=== PATIENT | female | born 1975 | race Caucasian/White ===

== ENCOUNTER 2020-12-06 15:07 | Outpatient (CLI) | payer SELFPAY ==
--- NOTE | ~2020-12-06 | MM_ITS ---
EXAMINATION: MM screening nuno BI w juana HISTORY: Screening TECHNIQUE: Craniocaudal and mediolateral oblique 3-D tomosynthesis images were obtained and synthetic 2-D images were generated. CAD analysis was submitted and interpreted. COMPARISON: Comparison to multiple prior studies sequentially, with oldest reviewed study dated 06/09. BREAST PARENCHYMAL COMPOSITION: The breasts are heterogeneously dense, which may obscure small masses . FINDINGS: There is a developing mass in the lower central right breast, middle third. There are additional bila teral breast masses which are stable or diminished in size compared with prior examination, previousl y demonstrated to be benign cysts. No there are surgical changes in both breasts. No suspicious calci fications or architectural distortion. IMPRESSION: 1. Developing right breast mass. 2. Additional mammographic views and possible breast ultrasound are recommended. BI-RADS Category 0: Incomplete: Needs additional imaging evaluation. Reviewed, dictated and finalized at location A. IMPRESSION: 1. Developing right breast mass. 2. Additional mammographic views and possible breast ultrasound are recommended . BI-RADS Category 0: Incomplete: Needs additional imaging evaluation.
== END 2020-12-06 15:08 | disposition home or self-care (01) ==
LOC: ANHIMG 15:16
PROVIDERS: PCP Obstetrics & Gynecology; Visit Provider Obstetrics & Gynecology
DX: Z12.31 Encounter for screening mammogram for malignant neoplasm of breast (principal); R92.8 Other abnormal and inconclusive findings on diagnostic imaging of breast
CPT/HCPCS: 77063; 77067

== ENCOUNTER 2020-12-29 11:26 | Outpatient (CLI) | payer SELFPAY ==
--- NOTE | ~2020-12-29 | MMUS_ITS ---
EXAMINATION: MM diagnostic mammo unilat RT, US breast RT complete HISTORY: Developing right breast mass reported on 12/06/2020 screening mammogram TECHNIQUE: Additional 3-D tomosynthesis images of the right breast were performed and synthetic 2-D i mages were generated. CAD analysis was submitted and interpreted. High resolution complete right tammie st ultrasound was performed. COMPARISON: 12/06/2020 bilateral digital screening mammogram 11/11/2018 bilateral digital screening mammogram 11/18/2017 bilateral diagnostic mammogram 08/30/2016 bilateral complete breast ultrasound examination BREAST PARENCHYMAL COMPOSITION: The breasts are heterogeneously dense, which may obscure small masses . FINDINGS: MAMMOGRAPHIC FINDINGS: An approximately 2.2 cm circumscribed low-density mass with halo sign is noted in the central right b reast, likely a benign cyst. Additional smaller masses are suggested. Surgical clips in the posterior upper inner quadrant of right breast. ULTRASOUND: There are numerous cysts, the largest measuring 1.9 x 0.8 x 2.8 cm, corresponding to the mammographic mass with halo sign, located at 1:00 near the nipple. No suspicious mass or shadowing is evident. IMPRESSION: 1. Benign cysts; no mammographic evidence of malignancy 2. Routine annual mammographic screening is recommended. BI-RADS Category 2: Benign finding(s). Reviewed, dictated and finalized at location A. IMPRESSION: 1. Benign cysts; no mammographic evidence of malignancy 2. Routine annual mammographic screening is recommended. BI-RADS Category 2: Benign finding(s).
== END 2020-12-29 11:27 | disposition home or self-care (01) ==
LOC: ANHIMG 11:33
PROVIDERS: PCP Obstetrics & Gynecology; Visit Provider Obstetrics & Gynecology
DX: R92.8 Other abnormal and inconclusive findings on diagnostic imaging of breast (principal)
CPT/HCPCS: 76641; 77065

== ENCOUNTER 2024-01-16 09:56 | Outpatient (CLI) | payer BC, SELFPAY ==
--- NOTE | ~2024-01-16 | MMUS_ITS ---
EXAMINATION: MM diagnostic nuno BI w juana, US breast BI complete HISTORY: Right breast pain TECHNIQUE: ML, MLO and CC 3-D tomosynthesis images of both breasts were performed and synthetic 2-D i mages were generated. CAD analysis was submitted and interpreted. High resolution complete bilateral breast ultrasound examination including all 4 quadrants and subareolar area of each breast was perfor med. COMPARISON: 12/16/2022, 12/13/2021 lateral screening mammogram examinations BREAST PARENCHYMAL COMPOSITION: The breasts are heterogeneously dense, which may obscure small masses . FINDINGS: MAMMOGRAPHIC FINDINGS: History of right lumpectomy in 2017. History of bilateral benign breast biopsies. Surgical clips note d posteriorly in the upper inner right breast. Biopsy marker is needed in the inner mid left breast. Circumscribed opacities measuring up to 15.5 mm are noted on the right. Circumscribed up to 13 mm masses are noted on the left. No suspicious mass, architectural distortion, malignant calcification, skin thickening or retraction of either breast is detected. ULTRASOUND: No suspicious mass or shadowing renal breasts is evident. Right breast: 12:00 near nipple: 11 x 16 mm simple cyst 5:00 near nipple: 6 x 8 mm simple cyst 7:00 1 cm from nipple: Circumscribed hypoechoic lesion with through transmission posterior enhancemen t, measuring 3.4 x 3.7 mm, benign in appearance, without internal vascularity 8:00 2 cm from nipple: 10 x 15.8 mm simple cyst Left breast: Multiple circumscribed sonolucent and hypoechoic lesions with through transmission are noted at 11:00 -11:00, measuring up to 1 cm dimension. 3:00 4 cm from nipple: 8.8 x 15 mm cyst 6:00 near nipple: Up to 6.4 x 12.2 mm septated cysts 10:00 4 cm from nipple: 10 x 11 mm simple cyst IMPRESSION: 1. Benign findings 2. Routine annual mammographic screening is recommended BI-RADS Category 2: Benign finding(s). Reviewed, dictated and finalized at location A. IMPRESSION: 1. Benign findings 2. Routine annual mammographic screening is recommended BI-RADS Category 2: Benign finding(s).
== END 2024-01-16 09:57 | disposition home or self-care (01) ==
LOC: ANHIMG 09:59
PROVIDERS: PCP Nurse Practitioner Family; Visit Provider Obstetrics & Gynecology
DX: N60.01 Solitary cyst of right breast (principal)
CPT/HCPCS: 76641; 77062; 77066; G0279

== ENCOUNTER 2025-01-12 09:57 | Outpatient (CLI) | payer OTHER, SELFPAY ==
--- NOTE | ~2025-01-12 | MM_ITS ---
EXAMINATION: MM screening nuno BI w juana HISTORY: Screening TECHNIQUE: Craniocaudal and mediolateral oblique 3-D tomosynthesis images were obtained and synthetic 2-D images were generated. CAD analysis was submitted and interpreted. COMPARISON: Comparison to multiple prior studies sequentially, with oldest reviewed study dated 11/11. BREAST PARENCHYMAL COMPOSITION: Not dense: There are scattered areas of fibroglandular density. FINDINGS: There is a mass in the mid lateral aspect of the right breast, middle third unchanged from prior study, previously characterized as a cyst by ultrasound. There are no new masses, calcification s or architectural distortion in either breast to suggest malignancy. IMPRESSION: 1. No mammographic evidence of malignancy. 2. Recommend routine screening mammography in one year. BI-RADS Category 2: Benign finding(s). Reviewed, dictated and finalized at location A.
--- OUTSIDE RECORDS SUMMARY | 2025-01-12 11:23 | XMS_ITS | Clinical Summary ---
Author Organization [facility] Address [address] [place] [address] Care Team Providers Care Jewel Sorter Name Role Phone Sarah Barahona FAMILY AND DIVORCE LEGAL ASSISTANT Primary Care Provider [phone] Allergies Active Allergy Reactions Criticality Noted Date Comments Prochlorperazine Anaphylaxis High 06/20/2019 Phenazopyridine Other (see comment) 07/04/2015 BP DROPPED Sulfa Antibiotics Headache Low 07/04/2015 Medications vitamin D3, cholecalciferol, 5000 UNITS capsule Take 1 capsule (125 mcg total) by mouth daily. Active Evening Phoenix Oil 1000 MG Cap Take 1 capsule by mouth 2 (two) times daily. Active famotidine (PEPCID) 40 MG tabletIndication s:Reactive gastropathy Take 1 tablet (40 mg total) by mouth every evening. 90 tablet 01/13/2024 Active Active Problems Problem Noted Date Diagnosed Date GERD (gastroesophageal reflux disease) Hyperlipidemia LDL goal <100 09/30/2023 History of pleurisy 08/31/2021 Resolved Problems Problem Noted Date Diagnosed Date Resolved Date Screening for colon cancer 10/02/2023 0 10/06/2023 Screening for colon cancer 10/02/2023 0 10/27/2023 Screening for colon cancer 10/02/2023 0 11/17/2023 Screening for colon cancer 10/02/2023 0 12/01/2023 Benign cyst of left breast 09/10/2019 0 09/30/2023 Left breast mass 06/26/2015 09/30/2023 Overview (09/01/2019): Overview: On imaging. Plan core Encounters Date Type Department Care Team Description 12/22/2024 Orders Only [facility] [id number] [place] [address] Beau Do, CHARGE PREPARATION TECHNICIAN from Last 3 Months Immunizations Immunization Administration Dates Next Due Hepatitis A (Generic) 04/01/2008 Influenza (Generic) 07/07/2018 Tdap (Generic) 07/07/2018 Family History Medical History Relation Comments Diabetes Father Breast Cancer Maternal Aunt Diabetes Maternal Grandfather CHF Maternal Grandmother Breast Cancer Paternal Grandmother Relation Status Comments Father Maternal Aunt Alive Maternal Grandfather Maternal Grandmother Mother Paternal Grandmother Social History Tobacco Use Types Packs/Day Years Used Date Smoking Tobacco: Former Cigarettes Q uit: 09/22/2016 Smokeless Tobacco: Never Tobacco Cessation:Counseling Given: Yes Alcohol Use Standard Drinks/Week Comments Yes 0 (1 standard drink = 0.6 oz pur e alcohol) rarely PHQ-2 Answer Date Recorded Patient Health Questionnaire-2 Score 0 01/13/2024 Comments No Sex and Gender Information Value Date Recorded Sex Assigned at Not on file Legal Sex Female 8:26 PM CDT Gender Identity Not on file Sexual Orientation Not on file Last Filed Vital Signs Vital Sign Reading Time Taken Comments Blood Pressure 118/70 01/13/2024 4:42 PM CDT Pulse 72 01/13/2024 3:51 PM CDT Temperature 36.1 C (97 F) 01/13/2024 3:51 PM CDT Respiratory Rate 16 01/13/2024 3:51 PM CDT Oxygen Saturation 98% 01/13/2024 3:51 PM CDT Inhaled Oxygen Concentration - - Weight 85.7 kg (189 lb) 01/13/2024 3:51 PM CDT Height 158.8 cm (5' 2.5 ) 01/13/2024 3:51 PM CDT Body Mass Index 34.02 01/13/2024 3:51 PM CDT Plan of Treatment Health Maintenance Due Date Last Done Comments Cervical Cancer Screening Pap Smear (Age 30 to 64) Every 3 Years 1976 Annual Physical 01/09/1979 Hepatitis C 01/09/1994 Hepatitis B Vaccines (1 of 3 - 19+ 3-dose series) 01/09/1995 Cervical Cancer Screening Pap with HPV Testing (Age 30 to 64) Every 5 Years 07/18/2022 07/18/2017 Cervical Cancer Screening with HPV 07/18/2022 COVID-19 Vaccine ( - 2023- season) 2024 PHQ-2 (Physician [place]') 09/22/2024 01/13/2024 Mammogram Screening 01/15/2026 01/16/2024, 12/16/2022, 12/13/2021, Additional history exists DTaP, Tdap and Td Vaccines (2 - Td or Tdap) 07/07/2028 07/07/2018 Colorectal Cancer Screening Colonoscopy (10 Years) 12/01/2033 12/02/2023, 12/02/2023, 12/02/2023 Meningococcal B Vaccine Aged Out No l onger eligible based on patient's age to complete this topic Meningococcal Vaccine Aged Out No paul sunil eligible based on patient's age to complete this topic Pneumococcal Vaccine: Pediatrics (0 to 5 Years) and At-Risk Patients (6 to 49 Years) Aged Out No longer eligible based on patient's age to complete this topic RSV Immunizations Under 20 Months Aged Out No longer eligible based on patient's age to complete this topic Procedures Procedure Name Priority Date/Time Associated Diagnosis Comments MAMMOGRAM GENERIC (SCAN ORDER) 01/16/2024 COLONOSCOPY Routine 12/02/2023 9:13 AM CDT HPV MRNA E6/E7 Routine 07/18/2017 6:55 PM CDT from Last 3 Months or Most Recently Relevant to Health Maintenance Results * MAMMOGRAM GENERIC (SCAN ORDER) (01/16/2024) Anatomical Region Laterality Modality Other 01/16/2024 [facility] Scanned SCANNING Final Resu lt * COLONOSCOPY/EGD GENERIC (SCAN ORDER) (12/02/2023) 12/02/2023 [facility] Scanned SCANNING Final Resu lt * HPV MRNA E6/E7 (07/18/2017 6:55 PM CDT) HPV MRNA E6/E7 Not Detected NOT DETECTED 07/24/2017 11:37 AM CDT [facility] JUDIT BARNETT Comment: This test was performed using the APTIMA(R) HPV Assay([employer]This assay detects E6/E7 viral messenger RNA (mRNA)from 14 high-risk HPV types (16,18,31,33,35,39,45,51,52,56,58,59,66,68).For additional information please refer to:http://education.Omada/faq/SSP267b3(This link is being provided for informational/educational purposes only.)Test Performed by [facility],[employer] [facility],[address] [place] [id number] Sanabria M.D., Ph.D., Director of [phone], [facility] [id number] FLUID SPECIMEN / Unknown 07/18/2017 6:55 PM CDT 07/18/2017 6:55 PM CDT us Generic Conversion Md JUNG PATHOLOGY/CYTOLOGY ALIX CARNEY Final Result [facility] [address] [address], from Last 3 Months or Most Recently Relevant to Health Maintenance Insurance Care Teams Jewel Sorter Relationship Specialty Start Date End Date Sarah Barahona FNP [address] [place] [address] [place] [address] PCP - General Nurse Practitioner Family 09/30/23
--- OUTSIDE RECORDS SUMMARY | 2025-01-12 11:23 | XMS_ITS | Clinical Summary ---
Author Organization [facility] Address [address] [place] [address] Phone Care Team Providers Care Boiler Repairman Name Role Phone Zainab Mooney MD Primary Care Provider Allergies Active Allergy Reactions Criticality Noted Date Comments Phenazopyridine Other (See Comments) 07/04/2015 BP DROPPED Prochlorperazine Other (See Comments) 07/04/2015 BP AND OXYGEN LEVELS DROPPED Sulfa (Sulfonamide Antibiotics) Headache Low 07/04/2015 Medications multivitamin (DAILY-TRUDY) tablet Take 1 Tablet by mouth daily. Active Potassium 99 mg Tablet Take by mouth. Active cyanocobalamin (VITAMIN B-12) 100 mcg tablet Take 100 mcg by mouth daily. Active Evening Bronx Oil (EVENING PRIMROSE) 500 mg Capsule Take by mouth. Active Active Problems Patient Care Coordination No te Formatting of this note migh t be different from the original. Primary Care: No primary care provider on file. Referring Provider: Not in an encounter context. Other: Problem Noted Date Diagnosed Date Bilateral breast lump 06/26/2015 Overview (07/04/2015): On imaging. Plan core Family History Medical History Relation Name Comments Breast Cancer Paternal Grandmother GREAT Relation Name Status Comments Paternal Grandmother Social History Tobacco Use Types Packs/Day Years Used Date Smoking Tobacco: Former Alcohol Use Standard Drinks/Week Comments Yes 0 (1 standard drink = 0.6 oz pur e alcohol) Comments No Sex and Gender Information Value Date Recorded Sex Assigned at Not on file Legal Sex Female 2:50 PM CDT Gender Identity Not on file Sexual Orientation Not on file Last Filed Vital Signs Vital Sign Reading Time Taken Comments Blood Pressure 102/58 12/23/2018 1:42 PM CDT Pulse 79 12/23/2018 1:42 PM CDT Temperature 36.8 C (98.3 F) 12/23/2018 1:42 PM CDT Respiratory Rate - - Oxygen Saturation 99% 12/23/2018 1:42 PM CDT Inhaled Oxygen Concentration - - Weight 73.9 kg (163 lb) 12/23/2018 1:42 PM CDT Height 157.5 cm (5' 2 ) 12/23/2018 1:42 PM CDT Body Mass Index 29.81 12/23/2018 1:42 PM CDT Plan of Treatment Health Maintenance Due Date Last Done Comments DTAP/TDAP/TD VACCINES (1 - Tdap) 01/09/1995 HEPATITIS B VACCINES (1 of 3 - 19+ 3-dose series) 01/09/1995 HPV/Cotest (21-29) 01/09/1997 CERVICAL CANCER SCREENING 01/09/2006 HPV/Cotest (30-65) 01/09/2006 PAP SMEAR 01/09/2006 BREAST CANCER SCREENING 11/18/2018 11/18/19 18, 08/30/2016, 07/04/2015, Additional history exists COLORECTAL SCREENING 01/09/2021 Colorectal Cancer Screening 01/09/2021 FIT-DNA Q 3 years 01/09/2021 FIT/FOBT Q 1 year 01/09/2021 Flex Sig/CT Colonography Q 5 years 01/09/2021 INFLUENZA VACCINE (#1) 2024 Procedures Procedure Name Priority Date/Time Associated Diagnosis Comments MAMMO SCRN TO DIAG BILAT Routine 11/18/2017 from Last 3 Months or Most Recently Relevant to Health Maintenance Results * MAMMO SCRN TO DIAG BILAT (11/18/2017) Anatomical Region Laterality Modality Breast Mammography us Abstract Provider MAMMO ORDERABLES Final Result from Last 3 Months or Most Recently Relevant to Health Maintenance Insurance [facility] [employer] Care Teams Boiler Repairman Relationship Specialty Start Date End Date [place]-Zainab Freedman MD [address] [place] [address] PCP - General Obstetrics and Gynecology 12/23/18
--- OUTSIDE RECORDS SUMMARY | 2025-01-12 11:23 | XMS_ITS | Encounter Summary ---
Author Organization [facility] Address [facility] [place] [address] Care Team Providers Care Billing Analyst Name Role Phone Sophia Olsen Primary Care Provider [phone] Sarah Barahona Primary Care Provider [phone] Encounter Details Date Type Department Care Team (Late st Contact Info) Description 07/19/2016 Abstract [facility] CONVERSION [address] [place] [address] , Generic ConversionMD Social History Tobacco Use Types Packs/Day Years Used Date Smoking Tobacco: Never Assessed Comments Unknown Sex and Gender Information Value Date Recorded Sex Assigned at Not on file Legal Sex Female 8:26 PM CDT Gender Identity Not on file Sexual Orientation Not on file documented as of this encounter Plan of Treatment Not on file documented as of this encounter Visit Diagnoses Not on filedocumented in this encounter Care Teams Billing Analyst Relationship Specialty Start Date End Date Sophia Olsen [address] [place] [address] PCP - General PREVENTIVE MEDICINE 06/20/19 09/29/23 Sarah Barahona FNP [address] [place] [address] [place] [address] PCP - General Nurse Practitioner Family 09/30/23 documented as of this encounter
--- OUTSIDE RECORDS SUMMARY | 2025-01-12 11:24 | XMS_ITS | Data Portability ---
Author Organization [facility], [id number] Address [address] [place] [address] Assessment No assessment recorded. Plan of Treatment Reminders Order Date Submit Date Provider Last Modified By Organization Details Last Modified Time Details Appointments ANNUAL- EST 15 2025 09:45A M HERBERT SINGLETON MD Not available Not available Not available Lab CBC w/ diff 2024 025 [facility], [address], [place], [address], 12/22/2024 13:46:57 CMP, serum or plasma 2024 025 [facility], [address], [place], [address], 12/22/2024 13:46:57 TSH, serum, reflex free T4 2024 025 [facility], [address], [place], [address], 12/22/2024 13:46:58 HbA1c (hemoglob in A1c), blood 2024 025 [facility], [address], [place], [address], 12/22/2024 13:46:57 vitamin D, 25-hydrox y, total, serum [address] [facility], [address], [place], [address], 12/22/2024 13:46:58 lipid panel, serum [address] [facility], [address], [place], [address], 12/22/2024 13:46:58 Referral general surgeon referral 2024 025 [facility], [address], [address], [place], [address], 12/24/2024 09:25:37 Procedures None recorded. Surgeries None recorded. Imaging MAMMO, diagnosti c, digital, bilateral [address], [address], [place], [address], 01/06/2025 15:25:37 US, breast, bilateral 2024 025 [facility], [address], [place], [address], 01/05/2025 15:40:32 Medication Orders None recorded. Patient TargetsNo targets recorded. Patient Instructions Encounter Date Encounter Id Patient Instructions Last Modified By Organization Details Last Modified Time 12/22/2024 [id number] Referral to general surgeon for sebaceous cyst and needs to see derm for evaluation of mole. [email or web address] Not available 12/22/2024 13:54:15 Reason for Referral General Surgeon Referral for Sebaceous cyst of skin Referring Physician: Beau Do, SENIOR ECONOMIST, Encounter Date: 12/22/2024 Problems Name Problem SNOMED Code Status Onset Date Resolution Date Notes Provider Name and Address Organization Details Recorded Time Sebaceous cyst of skin 034409026 Active Willow DO DANIA [address] [facility] [address], [place], [address] [facility] [place] [facility] 5 13:50:01 Problem Notes None recorded. Procedures Surgical History Date Name Laterality Status Provider Name and Address Organization Details Recorded Time 4 Date of Last Colonoscopy completed Alycia Rudolphi [place] [facility] 12/22/2024 13:12:24 4 Date of Last Mammogram completed Alycia Rud[place] [facility] 12/22/2024 13:11:54 3 Date of Last Pap Smear completed Alycia Rud[place] [facility] 12/22/2024 13:11:45 Tubal Ligation completed Alycia Rud[place] [facility] 12/22/2024 13:07:40 Breast Biopsy completed Alycia Rud[place] [facility] 12/22/2024 13:07:40 Breast Surgery completed Alycia Rudolphi [place] [facility] 12/22/2024 13:07:40 Imaging Results None recorded. Procedure Notes None recorded. Medical Equipment None Reported. Allergies Allergen ID Allergen Name Allergen Category Reaction Reaction Severity Criticality Documentation Date Start Date Code Code System Note Provider Name and Address Organization Details Recorded Time 388715 Substance with sulfonami de structure and antibacte rial mechanism of action (substanc e) medicatio n Not available Not available Not available 12/22/2024 04352 [id number] SNOMED Alycia Rudolphi null, [place] [facility] 5 13:07:28 950592 Compazine medicatio n anaphylax is Not available Not available 12/22/2024 15168 6 RxNorm Alycia Rudolphi null, [place] [facility] 5 13:08:37 092542 Phenergan medicatio n anaphylax is Not available Not available 12/22/2024 92887 8 RxNorm Alycia Rudolphi null, [place] [facility] 13:08:58 Medications Name Sig Start Date Stop Date Status Note LastModified by Organization Details LastModified Time Vitamin C 500 mg tablet Take by oral route. active Not Available Not Available No t Available Vitamin D3 active Not Available Not Av ailable Not Available Calcium 500 active Not Available Not A vailable Not Available Daily Multi-Vitam in active Not Available Not Available Not Available [place] Oil 1,000 mg capsule Take by oral route. active Not Available Not Available No t Available Vitals Date Recorded Body height Body mass index (BMI) Body weight Systolic blood pressure Diastolic blood pressure Provider Name and Address Organization Details Last Updated DateTime 12/22/2024 156.85 cm 32.3 kg/m2 29712.66 g 110 mm[Hg] 64 mm[Hg] Alycia [facility] 13:07:23 Social History Question Answer Notes LastModified by Organizat ion Details LastModified Time Tobacco Smoking Status Current Some Day Smoker Alycia Harding [facility] 12/22/2024 13:07:38 Do You Have An Advance Directive? No Information not available 12/22/2024 What Is Your Level Of Alcohol Consumption? Occasional Information not available 12/22/2024 If You Are , What Was Your Level Of Alcohol Consumption Prior To ? None Information not available 12/22/2024 How Many Years Have You Consumed Alcohol? 30 Information not available 12/22/2024 What Is Your Level Of Caffeine Consumption? Moderate Information not available 12/22/2024 Are You Currently Employed? Yes Information not available 12/22/2024 What Type Of Diet Are You Following? REGULAR Information not available 12/22/2024 What Is Your Relationship Status? Single Information not available 12/22/2024 At What Age Did You Start Smoking Tobacco? 18 Information not available 12/22/2024 How Much Tobacco Do You Smoke? 1 PPW Information not available 12/22/2024 Sex: Unknown Functional Status None recorded. Mental Status None recorded. Family History Relationship Description Onset Age of this Age Resolved Age Notes LastModified by Organization Details LastModified Time Paternal Grandmother Malignant tumor of breast crudolphi Not available 2024 13:07:31 Maternal Grandmother Heart disease crudolphi Not available 2024 13:07:31 Maternal Grandmother Osteoporosis crudolphi Not available 12/22/2024 13:07:31 Sister Asthma crudolphi Not available 12/22/2024 13:07:31 Father Asthma crudolphi Not available 12/22/2024 13:07:31 Medical History No medical history recorded. Gynecological History Statement/Question Response History of PCOS N History of Fibroids N Date of Last Mammogram 09/22/2023 Date of LMP 12/13/2024 History of Infertility N History of Cervical Dysplasia N History of Vulvar Dysplasia N History of Recurrent Ovarian Cysts N History of Endometriosis N Date of Last Colonoscopy 01/21/2024 Sexually Active? N History of Dysmenorrhea N Menses Monthly N Date of Last Pap Smear 10/29/2022 History of Sexually Transmitted Infectio n N Obstetrics History GPAL:G 4 P 2 0 2 2 Type Value Full Term 2 Spontaneous 2 Living 2 Total 4 Past Encounters Encounter ID Performer Location Encounter Start Date Encounter Closed Date Diagnosis/Indication Diagnosis SNOMED-CT Code Diagnosis ICD10 Code Diagnosis Note [id number] BEAU DO [facility] [id number] [facility] [address] [facility] [address] [place] [address] 12/22/2024 12:53:15 12/22/2024 13:47:06 Mammography abnormal 933755552 R92.8 General ex amination of patient 418598653 Z00.00 Sebaceous cyst of skin 310702775 L72.3 Gynecologi c examination 15148966 Z01.419 Health Concerns Section Related Observation LastModified by Organization Detai ls LastModified Time None Recorded Concern Status LastModified by Organization Details LastModified Time None Recorded Advance Directives Directive N: Payers Encounter Date Sequence Insurance Name Policy Number Policy Smith Covered Member ID Smith Member ID Guarantor Name 12/22/2024 1 [employer] [id number] Doreen Wang [id number] Doreen Wang Notes Date Note Type Note Provider Name and Address Organization Details Recorded Time 12/22/2024 text/html Annual Postmenopausal ([facility])Reported bypatient.Patient Relationship To Practice:established patient Current Medical History:no active medical problems Menopausal Symptoms:not present; Menses still present every few months. Longest she has gone is 8 months in between. HRT:not currently on HRT Sexually Active:Yes: STI Screen:declines Health/Prevention:Ex ercise: ; Vitamin D: yes; Adequate Calcium Intake: yes; Breast Self Exam: yes; Tobacco Use: no Mammogram:due Pap Smear +/- HPV Cotesting:up-to-date Thyroid/Lipid Screening:due Colonoscopy: Bone Density Study: Patient has:Primary Care Physician: yes BEAU DO DANIA [address] [facility] [address], [place], [address], [facility] 12/22/2024 14:50:40 OBGyn Episode No OBEpisode recorded.
== END 2025-01-12 09:58 | disposition home or self-care (01) ==
PROVIDERS: PCP Nurse Practitioner Family; Visit Provider Nurse Practitioner Women's Health
DX: Z12.31 Encounter for screening mammogram for malignant neoplasm of breast (principal); R92.8 Other abnormal and inconclusive findings on diagnostic imaging of breast
CPT/HCPCS: 77063; 77067